=== PATIENT | male | born 1950 | race Caucasian/White ===

== ENCOUNTER 2017-07-08 14:39 | Emergency (ER) | payer OTHER ==
[~2017-07-08] VITALS: Ht 182.9 cm; Wt 90.7 kg
[~2017-07-08 14:39] MED LIST: ATEN25 PO; Hair, Skin & N1 EACH PO; Norco 5-325 Ta1 EACH PO; Norvasc5 MG PO
[2017-07-08] MEDS ORDERED: Norco 5-325 Ta1 EACH PO (17:24)
[2017-07-08] MEDS ORDERED: CEPH500 PO (17:24)
== END 2017-07-08 17:35 | disposition home or self-care (01) ==
LOC: ER 14:39
DX: S68.012A Complete traumatic metacarpophalangeal amputation of left thumb, initial encounter (principal); S61.012A Laceration without foreign body of left thumb without damage to nail, initial encounter; I10 Essential (primary) hypertension; Z96.641 Presence of right artificial hip joint; Z79.899 Other long term (current) drug therapy; W27.0XXA Contact with workbench tool, initial encounter
CPT/HCPCS: 12042; 73140; 99283

== ENCOUNTER → 2024-06-06 | Outpatient (CLI) | payer OTHER ==
[~2024-06-06] MED LIST changes: +CEPH500 PO
== END ==
LOC: LAB 08:04 → LAB SHORT 08:04
DX: L82.1 Other seborrheic keratosis (principal); L57.0 Actinic keratosis
CPT/HCPCS: 88305

== ENCOUNTER → 2025-02-21 | Outpatient (CLI) | payer OTHER ==
[2025-02-21 11:35] LABS: Source, Urine Clean Catch
[2025-02-21 11:48] LABS: Bilirubin, Urine Neg (Neg); Color, Urine Yellow (P-Yellow); Glucose Qualitative, Urine Neg (Normal); Ketones, Urine Neg (Neg); Leukocyte Esterase, Urine Neg (Neg); Protein, Urine Neg (Neg); Specific Gravity, Urine 1.010 (1.003-1.022); Urobilinogen, Urine NORM (Normal)
[2025-02-21 15:19] LABS: Stool Occult Bld Immuno 1 Positive (NEGATIVE)
== END | disposition home or self-care (01) ==
LOC: LAB SHORT 10:30 → LAB 10:30
PROVIDERS: Family Medicine
DX: K92.1 Melena (principal); Z87.448 Personal history of other diseases of urinary system
CPT/HCPCS: 82274